=== PATIENT | female | born 1985 ===

== ENCOUNTER 2018-06-11 08:40 | Emergency (ER) | payer OTHER ==
[2018-06-11 08:40] VITALS: BMI 24.5
--- NOTE | 2018-06-11 09:19 | C.PDOC ---
History Of Present Illness NEW ONSET L BREAST MASS X 2 WEEKS. LMP 2 DAYS AGO. +PAIN TO AREA. NO NIPPLE DC, BREAST SWELLING, OTHER ASSOC SX. PS PAINFUL W MOVEMENT, DIRECT PRESSURE. SP MAMMO 01/2018 AND BREAST US 07/2017. DENIES OTHER ASSOC SX. +RELIEF W NSAIDS, LAST DOSE YESTERDAY EXAM NAD BREAST: NO GROSS ASYMMETRY; R BREAST WNL; L BREAST: +DEEP SUBCUT MODULE APPROX 2 -3 CM 1-2OCLOCK POSITION, MOBILE W LOCAL TEND; NONFLUCTUANT. NO NIPPLE ABN, DC, NONTEND; NODES: NO L CLAVICULAR, AXILLA, CERV NODES. SKIN NO ERYTHEMA, INTACT REMAINDER NEG Time Seen by Provider: 06/11/18 09:09 Chief Complaint (Nursing): Breast Problem History Per: Patient History/Exam Limitations: no limitations Onset/Duration Of Symptoms: Days Current Symptoms Are (Timing): Still Present Severity: Moderate Past Medical History Reviewed: Historical Data, Nursing Documentation, Vital Signs Vital Signs: Last Vital Signs Temp 98.6 F 06/11/18 12:04 Pulse 58 L 06/11/18 12:04 Resp 18 06/11/18 12:04 BP 101/66 06/11/18 12:04 Pulse Ox 100 06/11/18 12:04 - Medical History PMH: No Chronic Diseases Surgical History: No Surg Hx Family History: States: No Known Family Hx - Social History Hx Alcohol Use: No Hx Substance Use: No - Immunization History Hx Tetanus Toxoid Vaccination: No Hx Influenza Vaccination: No Hx Pneumococcal Vaccination: No Review Of Systems Except As Marked, All Systems Reviewed And Found Negative. Skin: Positive for: Other (left breast mass) Physical Exam - Physical Exam Appears: No Acute Distress Skin: Normal Color, Warm, Dry, Other (no erythema, intact) Head: Atraumatic, Normacephalic Eye(s): bilateral: Normal Inspection Lymphatic: No Axilla Node Tenderness, Other ((-) left clavicular, (-) cervical nodes) Chest: Other (breast: no gross asymmetry; right breast wnl; left breast + deep subcut module approx 2-3 cm 1-2 o clock approx position, mobile with local tenderness; nodes; non-fluctuant. no nipple abn, dc, nontend) Respiratory: Other (NARD) Neurological/Psych: Oriented x3, Normal Speech ED Course And Treatment O2 Sat by Pulse Oximetry: 99 (RA) Pulse Ox Interpretation: Normal Progress - Data Reviewed Data Reviewed: Diagnostic imaging, Old records Medical Decision Making Medical Decision Making: Plan: --Motrin PO -- X-Ray- Left Breast -- POC Urine Preg. Test Disposition Counseled Patient/Family Regarding: Studies Performed, Diagnosis, Need For Followup, Rx Given - Disposition Referrals: [facility] [Outside] [facility] [Outside] Disposition: HOME/ ROUTINE Disposition Time: 12:29 Condition: IMPROVED Additional Instructions: Tiene un quiste benigna de la mama. SEGUIMIENTO EN CLNICA para lugo posterior tratamiento. MEHRDAD Motrin y / o Tylenol DAVID DIRIGIDO DAVID necesario para el dolor. Prescriptions: Acetaminophen [Tylenol Extra Strength] 2 tab PO Q6 #30 tablet Ibuprofen [Motrin] 600 mg PO Q6 #30 tab Instructions: Fibrocystic Breast Changes (DC) Forms: [employer] (Finnish) Print Language: POLISH - Clinical Impression Clinical Impression: Breast cyst - Scribe Statement The provider has reviewed the documentation as recorded by the Scribe Preet Casas Provider Attestation: All medical record entries made by the Scribe were at my direction and personally dictated by me. I have reviewed the chart and agree that the record accurately reflects my personal performance of the history, physical exam, medical decision making, and the department course for this patient. I have also personally directed, reviewed, and agree with the discharge instructions and disposition.
[2018-06-11 12:05] VITALS: BP 101/66; PULSE 58; RESP 18; TEMP 98.6
--- NOTE | 2018-06-11 12:25 | US ---
Date of service: 06/11/2018 PROCEDURE: Limited left breast ultrasound HISTORY: BREAST MASS COMPARISON: 02/04/2018 mammogram. 08/06/2017 bilateral breast ultrasound. TECHNIQUE: Standard protocol for this study/examination. FINDINGS: Cyst(s): None Breast mass: Well-circumscribed mass 0.7 x 1.46 x 1.3 cm. The mass is avascular. Longitudinal axis parallel to the chest wall. A similar finding was seen at 1 o'clock on the prior study although it was smaller and appear to represent a simple cyst. Dilated ducts: None Parenchymal distortion: None Skin thickening or subcutaneous abnormalities: None Morphologically, unremarkable lymph node(s) IMPRESSION: Mass, perhaps complex cyst displaying ultrasound criteria of a benign process. Specifically the long axis parallel to the chest wall, the well-circumscribed nature.This corresponds to the finding on physical examination. BIRADS 2 Benign findings. Recommendation: Follow-up to resolution given of palpable finding. Possible surgical consultation on on elective basis.
[2018-06-11 12:30] VITALS: O2SAT 99
== END 2018-06-11 12:37 | disposition home or self-care (01) ==
LOC: C.ER 08:40
DX: N60.02 Solitary cyst of left breast (principal)

== ENCOUNTER 2018-07-08 07:53 | Emergency (ER) | payer OTHER ==
[2018-07-08 07:53] VITALS: BMI 24.5
[2018-07-08 07:58] VITALS: BP 109/74; PULSE 79; RESP 18; TEMP 97.7; O2SAT 100
--- NOTE | 2018-07-08 08:57 | C.PDOC ---
History Of Present Illness 32 y/o female presents to the ER complaining of itchy eyes x 2 days. Patient states that she has associated increased tearing. Patient denies having changes in vision, eye pain, headache, FB sensation, and any known sick contacts. Patient also denies wearing glasses and contact lenses. Time Seen by Provider: 07/08/18 08:08 Chief Complaint (Nursing): Eye Problem History Per: Patient History/Exam Limitations: no limitations Onset/Duration Of Symptoms: Days Current Symptoms Are (Timing): Still Present Past Medical History Reviewed: Historical Data, Nursing Documentation, Vital Signs Vital Signs: Last Vital Signs Temp 97.7 F 07/08/18 07:55 Pulse 79 07/08/18 07:55 Resp 18 07/08/18 07:55 BP 109/74 07/08/18 07:55 Pulse Ox 100 07/08/18 09:22 - Medical History PMH: No Chronic Diseases Surgical History: No Surg Hx Family History: States: No Known Family Hx - Social History Hx Alcohol Use: No Hx Substance Use: No - Immunization History Hx Tetanus Toxoid Vaccination: No Hx Influenza Vaccination: No Hx Pneumococcal Vaccination: No Review Of Systems Except As Marked, All Systems Reviewed And Found Negative. Constitutional: Negative for: Fever, Chills Eyes: Positive for: Other (itchy eyes ). Negative for: Pain, Vision Change Physical Exam - Physical Exam Appears: Non-toxic, No Acute Distress Skin: Normal Color, Warm, Dry Head: Atraumatic, Normacephalic Eye(s): bilateral: PERRL, EOMI, Other (mild injection L> R) Nose: Normal Oral Mucosa: Moist Neck: Normal ROM, Supple Chest: Symmetrical Respiratory: No Accessory Muscle Use Extremity: Normal ROM Neurological/Psych: Oriented x3, Normal Speech ED Course And Treatment O2 Sat by Pulse Oximetry: 100 (RA) Pulse Ox Interpretation: Normal Progress Note: Discussed allergic vs bacterial conjunctivits. Instructed to follow up with eye doctor in 1-2 days. Disposition - Disposition Referrals: Danny Hagan [Staff Provider] - [facility] [Outside] Disposition: HOME/ ROUTINE Disposition Time: 08:55 Condition: STABLE Additional Instructions: Follow up with eye doctor in 1-2 days. Return to ER if symptoms persist or worsen. Prescriptions: Loratadine [Claritin] 10 mg PO DAILY #10 tab Tobramycin 0.3% [Tobrex 0.3% Ophth Soln] 2 drop OP Q4 #1 bottle Instructions: Conjunctivitis (Noninfectious Pinkeye) (DC) Forms: [employer] (British) Print Language: TONGAN - Clinical Impression Clinical Impression: Conjunctivitis - PA / CLERICAL AIDE TEACHER / Resident Statement MD/DO has reviewed & agrees with the documentation as recorded. - Scribe Statement The provider has reviewed the documentation as recorded by the Deepak Casas Provider Attestation All medical record entries made by the Deepak were at my direction and personally dictated by me. I have reviewed the chart and agree that the record accurately reflects my personal performance of the history, physical exam, medical decision making, and the department course for this patient. I have also personally directed, reviewed, and agree with the discharge instructions and disposition.
== END 2018-07-08 08:50 | disposition home or self-care (01) ==
LOC: C.ER 07:53
DX: H10.9 Unspecified conjunctivitis (principal)